=== PATIENT | male | born 1955 | race Caucasian/White ===

== ENCOUNTER 2022-02-22 14:58 | Outpatient (RCR) | payer MEDICARE, MEDICAID, SELFPAY ==
[2022-02-22 15:17] VITALS: BP 134/71; PULSE 58; TEMP 35.7; BMI 27.5
--- NOTE | 2022-02-22 16:11 | HP.PCM_ITS ---
History of Present Illness Date of Service: 02/22/22 Chief Complaint: Left lateral forearm wound History of Wound: Patient is a 66 year old male who lives in a shelter. He was participating in the [employer], playing softball when he slid into the base and caused abrasions and wounds to his left side, three weeks ago. Most of his wounds have healed except to the left lateral forearm. He has a history of MRDD, epilepsy, DVT, current smoker, and is on a blood thinner. For his wound care, they have been placing antibiotic ointment and non adherent dressing to the wound. Today he denies, fever, chills, nausea, vomiting or diarrhea. Progress of Wound: There is dry scabbing on the left lateral elbow, that once removed, the wound is pink and superficial. [facility] Medical History Arthritis COPD (chronic obstructive pulmonary disease) Depression DVT (deep venous thrombosis) History of measles Hyperlipidemia Psychomotor retardation Pulmonary embolism (~10/2020) Seizures Sleep apnea Tremor of both hands Home Medications apixaban 5 mg tablet (Eliquis) 5 mg PO BID 12/19/21 [History Last Taken Unknown] aripiprazole 10 mg tablet (Abilify) 10 mg PO DAILY 12/19/21 [History Last Taken Unknown] atorvastatin 40 mg tablet 40 mg PO DAILY 12/19/21 [History Last Taken Unknown] citalopram 40 mg tablet 40 mg PO DAILY #30 tabs 12/19/21 [Rx Last Taken Unknown] divalproex 250 mg tablet,delayed release 250 mg PO BID #60 tabs 12/19/21 [Rx Last Taken Unknown] fenofibrate 160 mg tablet 160 mg PO DAILY 12/19/21 [History Last Taken Unknown] fluticasone 500 mcg-salmeterol 50 mcg/dose blistr powdr for inhalation 1 inh inhalation BID 12/19/21 [History Last Taken Unknown] folic acid 1 mg tablet 1 mg PO DAILY 12/19/21 [History Last Taken Unknown] furosemide 20 mg tablet 20 mg PO DAILY 12/19/21 [History Last Taken Unknown] ipratropium 0.5 mg-albuterol 3 mg (2.5 mg base)/3 mL nebulization soln 3 ml inhalation Q4H PRN 12/19/21 [History Last Taken Unknown] isosorbide dinitrate 10 mg tablet 10 mg PO BID 12/19/21 [History Last Taken Unknown] lactulose 10 gram/15 mL (15 mL) oral solution 10 g (15 mL) PO BID #900 mL 12/19/21 [Rx Last Taken Unknown] lansoprazole 30 mg capsule,delayed release 30 mg PO DAILY 12/19/21 [History Last Taken Unknown] levocarnitine 330 mg tablet 660 mg PO BID #120 tabs 12/19/21 [Rx Last Taken Unknown] lisinopril 10 mg tablet 10 mg PO DAILY 12/19/21 [History Last Taken Unknown] montelukast 10 mg tablet 10 mg PO QHS 12/19/21 [History Last Taken Unknown] primidone 50 mg tablet 100 mg PO BID #120 tabs 12/19/21 [Rx Last Taken Unknown] tiotropium bromide 18 mcg capsule with inhalation device (Spiriva with HandiHaler) 1 cap inhalation DAILY 12/19/21 [History Last Taken Unknown] trazodone 50 mg tablet 50 mg PO QHS #30 tabs 12/19/21 [Rx Last Taken Unknown] zonisamide 100 mg capsule 200 mg PO BID #120 caps 12/19/21 [Rx Last Taken Unknown] Allergy/AdvReac Type Severity Reaction Status Date / Time aspirin Allergy Unknown Unknown Verified 12/19/21 14:09 Family History Mother Heart disease Father Dementia Brother Heart disease Surgical History History of mandibular surgery Social History housing: assisted living facility Smoking Status: Current every day smoker second hand exposure: No alcohol intake: current alcohol intake frequency: a few times a month Alcohol type: beer substance use type: does not use seatbelt use: always ROS Constitutional Constitutional: Denies fatigue, fever(s) or frequent falls Eyes Eyes: Reports none ENT HEENT: Reports none Cardiovascular Cardiovascular: Denies chest pain, edema, nausea or vomiting Respiratory/Chest Respiratory/Chest: Denies cough, dyspnea or dyspnea on exertion Gastrointestinal Gastrointestinal: Denies nausea or vomiting Genitourinary Genitourinary: Denies none Musculoskeletal Musculoskeletal: Denies none Integumentary Integumentary: Reports wounds Neurologic Neurologic: Reports convulsions; Denies dizziness Psychiatric Psychiatric: Denies none Endocrine Endocrinology: Denies none Vital Signs Vital Signs Vital Signs: 02/22/22 15:17 Temperature 96.2 F L Temperature Source Temporal Pulse Rate 58 L Blood Pressure 134/71 H Blood Pressure Mean 92 Blood Pressure Source Monitor Weight Weight: 203 lb Body Mass Index (BMI) 27.5 Physical Exam Const alert and no apparent distress General Appearance: cooperative and well kempt HEENT normocephalic Eyes General Eye: normal appearance of both eyes Neck full ROM Resp normal respiratory effort, normal air movement and clear to auscultation bilaterally Effort and Inspection: able to speak in complete sentences Cardio regular rate and regular rhythm GI soft to palpation and non-tender Extremity full ROM and normal capillary refill Skin Skin Narrative: Scattered scabbing on left knee and thigh. Wound Narrative: Left lateral forearm with darkened scabbing that once removed, the wound is pink and superficial. He does have +2 non pitting edema in his left arm. Neuro moves all extremities Sensorium / Orientation: awake and alert Psych cooperative and affect normal Debridement Note Debridement Note Wound debrided: lateral forearm Laterality: Left Type of Debridement: Excisional debridement Anesthesia Used: 5% Lidocaine Gel Depth: Down to and including healthy tissue and in the subcutaneous layer Percentage of wound debrided: 100 Instrument Used: 5mm curette Tissue Removed: Non viable tissue and slough Severity: Fat Layer Exposed Amount of bleeding with debridement: Mild Bleeding Controlled with: Pressure and Compression and gauze Patient tolerated procedure: Patient tolerated procedure well Post-Debridement Measurements and Additional Note: Post-Debridement Measurements/Treatment - Nurse 1 - General Ulcer Assessment Start: 02/22/22 15:16 Freq: Status: Active Protocol: SUMMER Activity Type Activity Date Activity User E-sign Co-sign Detail Recorded Client Recorded Date Recorded By Document 02/22/22 15:17 SANDRA [id number] 02/22/22 15:25 SANDRA 02/22/22 15:17 - Today's Visit Information Type of service Initial Visit Arrival Mode Ambulatory Patient Identification Verified (Name & Yes ) Patient Requires Transmission-Based No Precautions Safety Precautions NA Height and Weight Height 6 ft Weight 203 lb Weight in Pounds 203.0 lbs Body Mass Index (BMI) 27.5 BMI Classification Overweight BSA - Richard 2.14 Vital Signs Temperature (97.8 F-99.1 F) 96.2 F L Temperature Source Temporal Pulse Rate (60-100) 58 L Pulse Location Monitor Blood Pressure (90/60-120/80) 134/71 H Blood Pressure Mean 92 Source Monitor History Since Last Visit- (Skip if this is Patient's initial visit) Left Footwear Regular Shoe Right Footwear Regular Shoe Pain Scale: 0-10 Numeric Is Patient Pain Free? Yes WC - Nurse 1 - General Ulcer Measurement Start: 02/22/22 15:16 Freq: Status: Active Protocol: Activity Type Activity Date Activity User E-sign Co-sign Detail Recorded Client Recorded Date Recorded By Document 02/22/22 15:17 SANDRA [id number] 02/22/22 15:25 SANDRA 02/22/22 15:17 Wound Center Nurse 1 #1 Left lateral forearm -Combined with other wound No -Current Size (cm) - Length 3.6 -Current Size (cm) - Width 2.5 -Current Size (cm) - Depth 0.1 -Total Square Cm 9.00 -Date of Last Picture (Recall this 02/22/22 field) -Photo Taken Yes -Tunneling No -Undermining/Tunneling No -Circular Undermining No -Change in Wound Grade/Stage No -Exudate Amt Medium -Exudate Type Serosanguineous -Wound Margin Distinct, Outline Attached -Granulation Amt None Present (0 %) -Granulation Quality N/A -Slough/Fibrin No -Necrosis Amt Large (67-100%) -Necrotic Tissue Type Adherent Slough -Structure Exposed N/A -Texture (Annabella-wound Skin Appearance) No Abnormality, Assessed -Moisture (Annabella-wound Skin Appearance) No Abnormality, Assessed -Color (Annabella-wound Skin Appearance) No Abnormality, Assessed -Temperature (Annabella-wound Skin No Abnormality Appearance) (Pt Warm) -Tenderness on Palpation (Annabella-wound No Skin Appearance) -Ulcer Cleansing Rinsed/ Irrigated with Saline -Foul Odor after Cleansing No -Anesthetic Used 5% Lidocaine Gel WC - Nurse 2 - General Ulcer CM Notes Start: 02/22/22 15:16 Freq: Status: Active Protocol: Activity Type Activity Date Activity User E-sign Co-sign Detail Recorded Client Recorded Date Recorded By Document 02/22/22 15:58 MW [id number] 02/22/22 16:09 MW 02/22/22 15:58 Wound Center Nurse 2 -Time 15:59 -Correct Patient Yes -Correct Side, Site, Position Yes -Correct Procedure Yes -Procedure Performed Yes -Type of Procedure Debridement -Clinical Debridement Subcutaneous -Tissue Removed Subcutaneous -Post Debridement (cm) - Length 4.7 -Post Debridement (cm) - Width 3.0 -Post Debridement (cm) - Depth 0.1 -Total Square (Post) (cm) 14.10 -Area of Debridement (cm) - Length 4.7 -Area of Debridement (cm) - Width 3.0 -Total Square (Area) (cm) 14.10 -Tunneling No -Undermining/Tunneling No -Circular Undermining No -Wound/Ulcer Outcome Not Healed -Ulcer Cleansing Rinsed/ Irrigated with Saline -Foul Odor after Cleansing No -Bioengineered Tissue No -Bleeding Controlled with Pressure -Treatment Response Procedure Tolerated Well -Offloading No -Debridement - Subq, 1st 20sq cm Yes Pain Scale: 0-10 Numeric Is Patient Pain Free? Yes Charges/Coding Visit Charges Office Visits / Consults: 62544 OV L3 Est (25 modifier) Procedures Integumentary [id number]: 85303 Malia subq tissue 20 sq cm/< Assessment/Plan Assessment/Plan (1) Open wound of left forearm: CODE(S): S51.802A - Unspecified open wound of left forearm, initial enc ounter (2) Swelling of left upper extremity: CODE(S): M79.89 - Other specified soft tissue disorders (3) History of DVT (deep vein thrombosis): CODE(S): Z86.718 - Personal history of other venous thrombosis and embolism PLAN: Plan Patient was seen and evaluated at the wound center. Subcutaneous debridement was performed as documented above. Wound care -Place collagen hydrogel covered with Adaptic and topped with gauze daily to his left lateral proximal forearm. Wash the wound daily with soap and water. His left arm is very swollen, and tender to palpation. He does have palpable radial and ulnar pulses that are +2. Will order an ultrasound of his left arm stat, hopefully this will be done tomorrow. This is to rule out potential DVT. He has a history of DVT, he is on Eliquis. Encouraged patient to stop smoking as it may have deleterious effects on wound healing. Encouraged eating increased protein intake, along with increasing Vitamin C intake to 1,000 mg daily. Follow up one week. Call or come in sooner, or go to ED if develop problems or further issues.
== END 2022-02-25 23:59 | disposition home or self-care (01) ==
LOC: WC 14:58
PROVIDERS: PCP Internal Medicine; Visit Provider Nurse Practitioner Family
DX: S50.812D Abrasion of left forearm, subsequent encounter (principal); J44.9 Chronic obstructive pulmonary disease, unspecified; G40.909 Epilepsy, unspecified, not intractable, without status epilepticus; E78.5 Hyperlipidemia, unspecified; Y93.64 Activity, baseball; F17.200 Nicotine dependence, unspecified, uncomplicated; Z79.01 Long term (current) use of anticoagulants; M79.89 Other specified soft tissue disorders; Z86.718 Personal history of other venous thrombosis and embolism; W17.89XD Other fall from one level to another, subsequent encounter
CPT/HCPCS: 11042; 99213; G0463

== ENCOUNTER 2022-02-24 11:13 | Emergency (ER) | payer MEDICARE, MEDICAID, SELFPAY ==
[2022-02-24 11:15] VITALS: BP 139/62; PULSE 54; RESP 16; TEMP 36.1; O2SAT 98; BMI 30.2
--- NOTE | 2022-02-24 11:33 | EX.ED.UPPERE ---
HPI History of Present Illness HPI Narrative: Continued left forearm swelling Chief Complaint: Wound Informant: patient and other Onset/Context/Timing Onset: Weeks Context: Gradual Onset Timing: Continuous Current Severity: Mild Maximum Severity: Mild Associated Symptoms Associated Symptoms: Negative for Parasthesia, Weakness or Loss of Funtion Narrative Narrative: 66-year-old male history of COPD, DVT and PEs for which he is on Eliquis. Patient was playing softball 2 to 3 weeks ago and injured his left forearm has basically abrasion. He was being taken care of at the wound care center. He was on 2 different rounds of antibiotics 1 of which being doxycycline. They were concerned because the wound was looking better but he still had left forearm swelling. Due to his history of blood clots on they want him to have a ultrasound of his arm he unfortunately missed the appointment and have been rescheduled for Saturday, February 26. They want to see if he can get it done today. He denies any other complaints. Prior similar symptoms: Yes Recent Illness/Hospitalization: No PFSH PFSH Medical History Arthritis COPD (chronic obstructive pulmonary disease) Depression DVT (deep venous thrombosis) History of measles Hyperlipidemia Psychomotor retardation Pulmonary embolism (~10/2020) Seizures Sleep apnea Tremor of both hands Home Medications apixaban 5 mg tablet (Eliquis) 5 mg PO BID 12/19/21 [History Last Taken Unknown] aripiprazole 10 mg tablet (Abilify) 10 mg PO DAILY 12/19/21 [History Last Taken Unknown] atorvastatin 40 mg tablet 40 mg PO DAILY 12/19/21 [History Last Taken Unknown] citalopram 40 mg tablet 40 mg PO DAILY #30 tabs 12/19/21 [Rx Last Taken Unknown] divalproex 250 mg tablet,delayed release 250 mg PO BID #60 tabs 12/19/21 [Rx Last Taken Unknown] fenofibrate 160 mg tablet 160 mg PO DAILY 12/19/21 [History Last Taken Unknown] fluticasone 500 mcg-salmeterol 50 mcg/dose blistr powdr for inhalation 1 inh inhalation BID 12/19/21 [History Last Taken Unknown] folic acid 1 mg tablet 1 mg PO DAILY 12/19/21 [History Last Taken Unknown] furosemide 20 mg tablet 20 mg PO DAILY 12/19/21 [History Last Taken Unknown] ipratropium 0.5 mg-albuterol 3 mg (2.5 mg base)/3 mL nebulization soln 3 ml inhalation Q4H PRN 12/19/21 [History Last Taken Unknown] isosorbide dinitrate 10 mg tablet 10 mg PO BID 12/19/21 [History Last Taken Unknown] lactulose 10 gram/15 mL (15 mL) oral solution 10 g (15 mL) PO BID #900 mL 12/19/21 [Rx Last Taken Unknown] lansoprazole 30 mg capsule,delayed release 30 mg PO DAILY 12/19/21 [History Last Taken Unknown] levocarnitine 330 mg tablet 660 mg PO BID #120 tabs 12/19/21 [Rx Last Taken Unknown] lisinopril 10 mg tablet 10 mg PO DAILY 12/19/21 [History Last Taken Unknown] montelukast 10 mg tablet 10 mg PO QHS 12/19/21 [History Last Taken Unknown] primidone 50 mg tablet 100 mg PO BID #120 tabs 12/19/21 [Rx Last Taken Unknown] tiotropium bromide 18 mcg capsule with inhalation device (Spiriva with HandiHaler) 1 cap inhalation DAILY 12/19/21 [History Last Taken Unknown] trazodone 50 mg tablet 50 mg PO QHS #30 tabs 12/19/21 [Rx Last Taken Unknown] zonisamide 100 mg capsule 200 mg PO BID #120 caps 12/19/21 [Rx Last Taken Unknown] Allergy/AdvReac Type Severity Reaction Status Date / Time aspirin Allergy Unknown Unknown Verified 02/24/22 11:15 Family History Mother Heart disease Father Dementia Brother Heart disease Surgical History History of mandibular surgery Social History housing: assisted living facility Smoking Status: Current every day smoker second hand exposure: No alcohol intake: current alcohol intake frequency: a few times a month Alcohol type: beer substance use type: does not use seatbelt use: always ROS ROS ED ROS Narrative Denies. Review of Systems ROS Unobtainable: Denies due to encephalopathy Constitutional Constitutional ED: Denies chills Eyes Eyes: Denies blurry vision ENT ENT ED: Denies ear pain Cardiovascular Cardiovascular: Denies chest pain Respiratory/Chest Respiratory/Chest: Denies cough Gastrointestinal Gastrointestinal: Denies abdominal pain Genitourinary Genitourinary ED: Denies dysuria Musculoskeletal Musculoskeletal: Denies back pain Neurologic Neurologic: Denies headache(s) Psychiatric Psychiatric: Denies anxiety Endocrine Endocrinology: Denies cold intolerance Hematologic/Lymphatic Hematologic/Lymphatic: Denies easy bleeding Allergic/Immunologic Allergic/Immunologic ED: Denies mouth swelling EXAM Physical Exam Narrative Exam Narrative: 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 Male no acute distress vital signs stable afebrile. HEENT exam unremarkable. Neck nontender no JVD. Lungs clear to auscultation. Heart regular rhythm. Abdomen soft nontender. Moving all 4 extremities. He does have mild swelling left forearm. There was a dressing on the arm that may be somewhat constrictive. That may be causing swelling it could also be secondary to a DVT. 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 There is a healing wound of his left dorsal forearm just distal to the elbow. From a prior road rash/abrasion. Otherwise exam unremarkable. Const Vital Signs: 02/24/22 11:15 Temperature 96.9 F L Temperature Source Temporal Pulse Rate 54 L Respiratory Rate 16 Blood Pressure 139/62 H Blood Pressure Mean 87 Pulse Ox 98 Oxygen Delivery Method Room Air Positive well nourished and well developed; Negative for cachectic, contractures or unkempt General Appearance ED: well developed; Negative for unkempt, cachectic or contractures Nutritional Appearance: Negative for cachectic HEENT Reports moist mucous membranes normocephalic and atraumatic; Negative for trauma Eyes PERRL and EOMs intact bilaterally General Eye ED: Negative for other Neck full ROM and supple General: Negative for tenderness Lymph Lymphatic: Negative for other Chest Wall inspection of chest normal and palpation of chest normal Chest: Negative for other Resp normal respiratory effort and clear to auscultation bilaterally Effort and Inspection: Negative for pain with movement Auscultation: Negative for rales or rhonchi Cardio regular rate, regular rhythm, S1 normal heart sound, S2 normal heart sound and no murmurs Rate: Negative for bradycardia Rhythm: Negative for abnormal rhythm GI non-tender, non-distended and no masses Inspection: Negative for abdominal distention Auscultation: normoactive bowel sounds Palpation: soft; Negative for tender Back/Spine no CVA tenderness General Back: Negative for CVA tenderness Cervical Spine: Negative for cervical spine tenderness Thoracic Spine / Upper Back: Negative for thoracic spinal tenderness Lumbar Spine / Lower Back: Negative for lumbar spinal tenderness or straight leg raise positive - left Extremity normal to inspection and full ROM General Extremety ED: Negative for edema General Extremity: Negative for edema Neuro oriented x3, CN's II-XII intact bilaterally, moves all extremities and no focal motor deficits Sensorium / Orientation: alert and oriented to person Motor Exam: strength 5/5 throughout Psych mental status grossly normal Appearance: Negative for unkempt Attitude: No agitated Mood & Affect: Negative for depressed or anxious Skin Skin Narrative: Healing abrasion left proximal dorsal forearm. Mild swelling left forearm. Left hand neurovascular intact with strong radial pulse. Lesions: no lesions Rashes: no rashes Trauma: abrasion; Negative for no lacerations or abrasions MDM MDM MDM Narrative Medical decision making narrative: 66-year-old male with continued swelling of his left forearm with a history of prior DVT and PEs. Scheduled for a noninvasive upper extremity study on Saturday. I explained to both he and the caregiver with him that I am unable to get that at this time. They understand that. He is already on Eliquis so he is covered for possible DVT. Follow-up with the study on Saturday. The wound looks like it is resolving he does not need further antibiotics at this time. Discharge Plan Triage Chief Complaint: Wound ED Provider: Teddy Najera Dx/Rx/DC Orders Clinical Impression: Swelling of left upper extremity, History of deep vein thrombosis, Abrasion of forearm, left, Chronic anticoagulation Prescriptions: No Action aripiprazole [Abilify] 10 mg tablet 10 mg PO DAILY Spiriva with HandiHaler 18 mcg capsule, w/inhalation device 1 cap inhalation DAILY Rx Instructions: puncture 1 cap using device; one dose = 2 inhalations lansoprazole 30 mg capsule,delayed release(DR/EC) 30 mg PO DAILY fenofibrate 160 mg tablet 160 mg PO DAILY lisinopril 10 mg tablet 10 mg PO DAILY atorvastatin 40 mg tablet 40 mg PO DAILY montelukast 10 mg tablet 10 mg PO QHS folic acid 1 mg tablet 1 mg PO DAILY furosemide 20 mg tablet 20 mg PO DAILY isosorbide dinitrate 10 mg tablet 10 mg PO BID Rx Instructions: allow nitrate-free interval of 12-14 hrs per 24-hr period ipratropium-albuterol 0.5 mg-3 mg(2.5 mg base)/3 mL solution for nebulization 3 ml inhalation Q4H PRN fluticasone propion-salmeterol 500-50 mcg/dose blister with device 1 inh inhalation BID Eliquis 5 mg tablet 5 mg PO BID lactulose 10 gram/15 mL (15 mL) solution 10 g PO BID Qty: 900 6RF levocarnitine 330 mg tablet 660 mg PO BID Qty: 120 6RF Rx Instructions: must administer with a meal/food divalproex 250 mg tablet,delayed release (DR/EC) 250 mg PO BID Qty: 60 6RF zonisamide 100 mg capsule 200 mg PO BID Qty: 120 6RF citalopram 40 mg tablet 40 mg PO DAILY Qty: 30 6RF trazodone 50 mg tablet 50 mg PO QHS Qty: 30 6RF primidone 50 mg tablet 100 mg PO BID Qty: 120 6RF Primary Care Provider: Gabby Mayers Referrals: Gabby Mayers MD [Primary Care Provider] - As Needed Activity Restrictions/Additional Instructions: Follow-up with your left upper extremity ultrasound on Saturday. Even if you have a blood clot you are already being treated for it being on your anticoagulant medication Eliquis. Follow-up with the wound care center as needed. Disposition Disposition: Home, Self Care
== END 2022-02-24 11:51 | disposition home or self-care (01) ==
PROVIDERS: Emergency Provider Emergency Medicine; PCP Internal Medicine; Visit Provider Emergency Medicine
DX: M79.89 Other specified soft tissue disorders (principal); J44.9 Chronic obstructive pulmonary disease, unspecified; E78.5 Hyperlipidemia, unspecified; F17.200 Nicotine dependence, unspecified, uncomplicated; M19.90 Unspecified osteoarthritis, unspecified site; Z79.01 Long term (current) use of anticoagulants; Z86.718 Personal history of other venous thrombosis and embolism; Z79.899 Other long term (current) drug therapy; Z86.711 Personal history of pulmonary embolism
CPT/HCPCS: 99283

== ENCOUNTER → 2022-02-26 | Outpatient (CLI) | payer MEDICARE, MEDICAID, SELFPAY ==
--- NOTE | 2022-02-26 13:23 | VDUE_ITS ---
Reason For Study: Swelling Left Proximal Left jugular vein is spontaneous, widely patent, phasic, with no intraluminal echogenicity noted. Left subclavian vein is spontaneous, widely patent, phasic, with no intraluminal echogenicity noted. Left Arm Left axillary vein is spontaneous, patent, phasic, competent, compressible and demonstrates augmentation. Left brachial vein is compressible. Left cephalic vein is compressible. Left basilic vein is compressible. Left Lower Arm Left radial vein is compressible. Left ulnar vein is compressible. Patient Safety Preliminary sent to Estephania at the [facility]. VL/Venous Duplex US, Unilateral Interpretation Summary Deep veins of the left upper extremity are patent and compressible segmentally. There is no evidence of deep vein thrombosis. The superficial veins of the left upper extremity, the basilic and cephalic veins, are patent and compressible. There is no evidence of left upper extremit y superficial thrombophlebitis involving the veins imaged. Ordering Physician: Nia Best Referring Physician: Gabby Mayers Performed By: Hue Liao RVT ?
== END | disposition home or self-care (01) ==
PROVIDERS: PCP Internal Medicine; Visit Provider Nurse Practitioner Family
DX: S51.802A Unspecified open wound of left forearm, initial encounter (principal); M79.89 Other specified soft tissue disorders; Z86.718 Personal history of other venous thrombosis and embolism
CPT/HCPCS: 93971

== ENCOUNTER 2022-03-01 13:30 | Outpatient (RCR) | payer MEDICARE, MEDICAID, SELFPAY ==
[2022-02-26 00:43] VITALS: BP 134/71; PULSE 58; TEMP 35.7; BMI 27.5
[2022-03-01 13:32] VITALS: BP 126/48; PULSE 57; RESP 16; TEMP 37.1; BMI 27.5
--- NOTE | 2022-03-01 15:01 | PN.PCM_ITS ---
History of Present Illness Date of Service: 03/01/22 Chief Complaint: Left lateral forearm wound History of Wound: Patient is a 66 year old male who lives in a halfway. He [place] [employer] playing softball when he slid into the base and caused abrasions and wounds to his left side, three weeks ago. Most of his wounds have healed except to the left lateral forearm. He has a history of MRDD, epilepsy, DVT, current smoker, and is on a blood thinner. For his wound care, they have been placing antibiotic ointment and non adherent dressing to the wound. Wound care - Collagen hydrogel covered with adaptic and topped with gauze to his left lateral proximal arm/elbow. Will place a tubigrip for compression and to help hold the dressing in place. Ultrasound of his left upper extremity on 02/26/22 - Deep veins of the left upper extremity are patent and compressible segmentally. There is no evidence of deep vein thrombosis. The superficial veins of the left upper extremity, the basilic and cephalic veins, are patent and compressible. There is no evidence of left upper extremity superficial thrombophlebitis involving the veins imaged. Today he denies, fever, chills, nausea, vomiting or diarrhea. Progress of Wound: Left proximal arm wound is much improved this week. Objective Data Objective Data Vital Signs: Vital Signs Temp Pulse Resp BP O2 Del Method 98.7 F 57 L 16 126/48 H Room Air 03/01/22 13:32 03/01/22 13:32 03/01/22 13:32 03/01/22 13:32 03/01/22 13:32 Oxygen Delivery Method Room Air Weight: 203 lb Body Mass Index (BMI) 27.5 Charges/Coding Procedures Integumentary 111xxx-113xx: [id number] Malia subq tissue 20 sq cm/< Physical Exam Const alert and no apparent distress General Appearance: cooperative and well kempt Resp normal respiratory effort Cardio regular rate Extremity full ROM and normal capillary refill Skin Wound Narrative: Left lateral forearm wound is much improved and smaller, it is pink and superficial. The edema of his left arm is also improved. Neuro Sensorium / Orientation: awake and alert Psych cooperative and affect normal Debridement Note Debridement Note Wound debrided: lateral forearm Laterality: Left Type of Debridement: Excisional debridement Anesthesia Used: 5% Lidocaine Gel Depth: Down to and including healthy tissue and in the subcutaneous layer Percentage of wound debrided: 100 Instrument Used: 3mm curette Tissue Removed: Non viable tissue and slough Severity: Fat Layer Exposed Amount of bleeding with debridement: Mild Bleeding Controlled with: Pressure and Compression and gauze Patient tolerated procedure: Patient tolerated procedure well Post-Debridement Measurements and Additional Note: Post-Debridement Measurements/Treatment - Nurse 1 - General Ulcer Assessment Start: 03/01/22 13:32 Freq: Status: Active Protocol: [facility] Activity Type Activity Date Activity User E-sign Co-sign Detail Recorded Client Recorded Date Recorded By Document 03/01/22 13:32 [facility] [id number] 03/01/22 13:35 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 ) Arrival Mode Ambulatory Transfer Assistance None Accompanied by CAREGIVER Patient Identification Verified (Name & Yes ) Patient Requires Transmission-Based No Precautions Height and Weight Body Mass Index (BMI) 27.5 BMI Classification Overweight Vital Signs Temperature (97.8 F-99.1 F) 98.7 F Temperature Source Temporal Pulse Rate (60-100) 57 L Pulse Location Monitor Respiratory Rate (12-18) 16 Respiratory rate source Observation Oxygen Delivery Method Room Air Blood Pressure (90/60-120/80) 126/48 H Blood Pressure Mean (mm Hg) 74 Source Monitor Position Sitting Blood Pressure Location Left Arm History Since Last Visit- (Skip if this is Patient's initial visit) Have you changed medications since your No last visit? Any new allergies or adverse reactions No Had a fall/change in ADL's that may No increase risk of falls Signs or symptoms of abuse and/or No neglect since last visit Have you been in the hospital since your No last visit? Has dressing in place as prescribed Yes Has compression in place as prescribed N/A Has offloadiing in place as prescribed N/A Experienced any changes in pain level or No management Left Footwear Regular Shoe Right Footwear Regular Shoe Pain Scale: 0-10 Numeric Is Patient Pain Free? Yes Natalia Nurse 1 - General Ulcer Measurement Start: 03/01/22 13:32 Freq: Status: Active Protocol: Activity Type Activity Date Activity User E-sign Co-sign Detail Recorded Client Recorded Date Recorded By Document 03/01/22 13:32 [facility] [id number] 03/01/22 13:35 [facility] 03/01/22 13:32 Wound Center Nurse 1 #1 Left lateral forearm -Combined with other wound No -Current Size (cm) - Length 0.1 -Current Size (cm) - Width 0.1 -Current Size (cm) - Depth 0 -Total Square Cm 0.01 -Date of Last Picture (Recall this 03/01/22 field) -Photo Taken Yes -Epithelialization Large 67-100% -Tunneling No -Undermining/Tunneling No -Circular Undermining No -Texture (Annabella-wound Skin Appearance) Assessed -Moisture (Annabella-wound Skin Appearance) Assessed,Dry/ Scaly -Color (Annabella-wound Skin Appearance) Assessed -Temperature (Annabella-wound Skin No Abnormality Appearance) (Pt Warm) -Tenderness on Palpation (Annabella-wound No Skin Appearance) -Ulcer Cleansing Rinsed/ Irrigated with Saline -Foul Odor after Cleansing No -Anesthetic Used 5% Lidocaine Gel Assessment/Plan Assessment/Plan (1) Open wound of left forearm: CODE(S): S51.802A - Unspecified open wound of left forearm, initial encounter (2) Swelling of left upper extremity: CODE(S): M79.89 - Other specified soft tissue disorders (3) History of DVT (deep vein thrombosis): CODE(S): Z86.718 - Personal history of other venous thrombosis and embolism PLAN: Plan Patient was seen and evaluated at the wound center. Subcutaneous debridement was performed as documented above. Wound care -Place collagen hydrogel covered with Adaptic and topped with gauze daily to his left lateral proximal forearm. Wash the wound daily with soap and water. Wear tubigrip for compression and to help keep dressing in place. Ultrasound of left arm on 02/26/22 was negative for DVT. His edema is improved. Encouraged patient to stop smoking as it may have deleterious effects on wound healing. Encouraged eating increased protein intake, along with increasing Vitamin C intake to 1,000 mg daily. Follow up one week. Call or come in sooner, or go to ED if develop problems or further issues.
== END 2022-03-28 23:59 | disposition home or self-care (01) ==
LOC: WC 13:30
PROVIDERS: PCP Internal Medicine; Visit Provider Nurse Practitioner Family
DX: S50.812D Abrasion of left forearm, subsequent encounter (principal); G40.909 Epilepsy, unspecified, not intractable, without status epilepticus; F17.200 Nicotine dependence, unspecified, uncomplicated; Y93.64 Activity, baseball; M79.89 Other specified soft tissue disorders; Z86.718 Personal history of other venous thrombosis and embolism; F79 Unspecified intellectual disabilities; W17.89XD Other fall from one level to another, subsequent encounter
CPT/HCPCS: 11042